=== PATIENT | female | born 1970 | race Caucasian/White ===

== ENCOUNTER → 2016-10-20 | Outpatient (CLI) | payer BC ==
--- NOTE | 2016-10-24 08:51 | MM ---
Reason for exam: screening (asymptomatic). Last mammogram was performed 3 years and 6 months ago. History: Took hormonal contraceptives for 4 years. Physical Findings: A clinical breast exam by your physician is recommended on an annual basis and results should be correlated with mammographic findings. MG Screening Mammo w CAD Bilateral CC and MLO view(s) were taken. Prior study comparison: April 17, 2013, bilateral digital screening mammo w/CAD. There are scattered fibroglandular densities. No significant changes when compared with prior studies. ASSESSMENT: Negative, BI-RAD 1 RECOMMENDATION: Routine screening mammogram of both breasts in 1 year.
== END | disposition home or self-care (01) ==
LOC: RADMAMWWP 11:28
PROVIDERS: ATTEND Family Medicine
DX: Z12.31 Encounter for screening mammogram for malignant neoplasm of breast (principal)

== ENCOUNTER 2017-07-03 06:58 | Emergency (ER) | payer BC ==
--- NOTE | 2017-07-03 07:55 | ED ---
ENT HPI - General Chief complaint: ENT Stated complaint: poss sinus infection Time Seen by Provider: 07/03/17 07:30 Source: patient, RN notes reviewed Mode of arrival: ambulatory Limitations: no limitations - History of Present Illness Initial comments: This is a 38-year-old female who states she had the onset 2 or 3 days ago of sinus congestion and developing left ear pain. She also has a slight cough is nonproductive she has been around grandchildren who have been ill. She's not sure whether they have influenza or not. She states her sinuses are stuffy she has felt feverish but has not registered a temperature. No overt chills or sweats. She has had some rhinorrhea that developed this morning. Complains of some facial pain especially left ear pain. MD complaint: ear pain, other - Related Data Previous Rx's Medication Instructions Recorded Clindamycin [Cleocin] 300 mg PO Q6H #40 capsule 07/03/17 Ibuprofen 800 mg PO Q6HR PRN #20 tablet 07/03/17 Allergies Allergy/AdvReac Type Severity Reaction Status Date / Time Penicillins Allergy Rash/Hives Verified 07/03/17 07:33 sulfamethoxazole Allergy Anaphylaxis Verified 07/03/17 07:33 [From Bactrim] trimethoprim [From Bactrim] Allergy Anaphylaxis Verified 07/03/17 07:33 Review of Systems ROS Statement: Those systems with pertinent positive or pertinent negative responses have been documented in the HPI. ROS Other: All systems not noted in ROS Statement are negative. Past Medical History Past Medical History: No Reported History History of Any Multi-Drug Resistant Organisms: None Reported Additional Past Surgical History / Comment(s): fatty tumor removed, ovarian cyst removal Past Psychological History: Depression Smoking Status: Former smoker Past Alcohol Use History: Rare Past Drug Use History: None Reported General Exam - General Exam Comments Initial Comments: This is a well-developed well-nourished awake alert oriented 3 female Limitations: no limitations General appearance: alert, in no apparent distress Head exam: Present: atraumatic, normocephalic, normal inspection Eye exam: Present: normal appearance, PERRL, EOMI. Absent: scleral icterus, conjunctival injection, periorbital swelling ENT exam: Present: normal oropharynx, TM's normal bilaterally, other ( Examination the external auditory canal on the left reveals erythema with the external ear and localized lymph nodes with erythema and tenderness palpation is also tenderness palpation and percussion over the frontal andHer sinuses. Boggy nasal mucosa is noted) Neck exam: Present: normal inspection, full ROM, lymphadenopathy. Absent: tenderness, meningismus Respiratory exam: Present: normal lung sounds bilaterally. Absent: respiratory distress, wheezes, rales, rhonchi, stridor Cardiovascular Exam: Present: regular rate, normal rhythm, normal heart sounds. Absent: systolic murmur, diastolic murmur, rubs, gallop, clicks GI/Abdominal exam: Present: soft, normal bowel sounds. Absent: distended, tenderness, guarding, rebound, rigid Extremities exam: Present: normal inspection, full ROM, normal capillary refill. Absent: tenderness, pedal edema, joint swelling, calf tenderness Back exam: Present: normal inspection Neurological exam: Present: alert, oriented X3, CN II-XII intact Psychiatric exam: Present: normal affect, normal mood Skin exam: Present: warm, dry, intact, normal color. Absent: rash Course Vital Signs 07/03/17 07:13 Temperature 97 F L Pulse Rate 78 Respiratory 16 Rate Blood Pressure 154/91 O2 Sat by Pulse 97 Oximetry Medical Decision Making - Medical Decision Making The patient's influenza was negative. I did discuss the findings with her. She does have an appointment to see her publicity writer tomorrow for evaluation of her psoriasis. Tension will be placed on antibiotics for sinusitis and a suspected otitis externa. - Lab Data Lab Results 07/03/17 Range/Units 08:14 Influenza Type A RNA Not Detected (Not Detectd) Influenza Type B (PCR) Not Detected (Not Detectd) Disposition Clinical Impression: Sinusitis, Otitis externa of left ear Disposition: HOME SELF-CARE Condition: Good Instructions: Sinusitis (ED), Otitis Externa (ED) Prescriptions: Clindamycin [Cleocin] 300 mg PO Q6H #40 capsule Ibuprofen 800 mg PO Q6HR PRN #20 tablet PRN Reason: Pain Referrals: Pravin Swain DO [Primary Care Provider] - 1-2 days
[2017-07-03] MEDS ORDERED: CLINDAMYCIN 150 MG CAP PO STA (08:37)
[2017-07-03 09:18] VITALS: BP 131/71; PULSE 72; RESP 18; TEMP 98.3
== END 2017-07-03 09:18 | disposition home or self-care (01) ==
LOC: EC 06:58
DX: H60.92 Unspecified otitis externa, left ear (principal); J32.9 Chronic sinusitis, unspecified; R59.0 Localized enlarged lymph nodes; Z87.891 Personal history of nicotine dependence; Z88.0 Allergy status to penicillin; Z88.1 Allergy status to other antibiotic agents
CPT/HCPCS: 87502; 99283

== ENCOUNTER → 2018-01-01 | Outpatient (CLI) | payer BC ==
--- NOTE | 2018-01-02 08:47 | MM ---
Reason for exam: screening (asymptomatic). Last mammogram was performed 1 year and 2 months ago. History: Took hormonal contraceptives for 4 years. Physical Findings: A clinical breast exam by your physician is recommended on an annual basis and results should be correlated with mammographic findings. MG Screening Mammo w CAD Bilateral CC and MLO view(s) were taken. Prior study comparison: October 20, 2016, bilateral MG screening mammo w CAD. April 17, 2013, bilateral digital screening mammo w/CAD. The breast tissue is heterogeneously dense. This may lower the sensitivity of mammography. No significant changes when compared with prior studies. ASSESSMENT: Benign, BI-RAD 2 RECOMMENDATION: Routine screening mammogram of both breasts in 1 year.
== END | disposition home or self-care (01) ==
LOC: RADMAMWWP 09:10
PROVIDERS: ATTEND Family Medicine
DX: Z12.31 Encounter for screening mammogram for malignant neoplasm of breast (principal)
CPT/HCPCS: 77067

== ENCOUNTER → 2019-08-02 | Outpatient (CLI) | payer SELFPAY ==
--- NOTE | 2019-08-05 11:37 | MM ---
Reason for exam: screening (asymptomatic). Last mammogram was performed 1 year and 7 months ago. History: Took hormonal contraceptives for 4 years. Physical Findings: A clinical breast exam by your physician is recommended on an annual basis and results should be correlated with mammographic findings. MG Screening Mammo w CAD Bilateral CC and MLO view(s) were taken. Prior study comparison: January 01, 2018, bilateral MG screening mammo w CAD. October 20, 2016, bilateral MG screening mammo w CAD. There are scattered fibroglandular densities. There are similar appearing right calcifications. No suspicious abnormality. No significant changes when compared with prior studies. ASSESSMENT: Benign, BI-RAD 2 RECOMMENDATION: Routine screening mammogram of both breasts in 1 year.
== END | disposition home or self-care (01) ==
LOC: RADMAMWWP 09:00
PROVIDERS: ATTEND Physician Assistant Medical
DX: Z12.31 Encounter for screening mammogram for malignant neoplasm of breast (principal)
CPT/HCPCS: 77067

== ENCOUNTER → 2023-05-17 | Outpatient (CLI) | payer BC ==
--- NOTE | 2023-05-17 16:13 | XR ---
EXAMINATION TYPE: XR finger RT DATE OF EXAM: 05/17/2023 COMPARISON: NONE HISTORY: Pain TECHNIQUE: Two views are submitted. FINDINGS: The osseous structures are intact. There is narrowing of all DIP joints most marked involving the thi rd digit. Diffuse osteopenia. Moderate first carpal metacarpal joint arthropathy. A lateral views dem onstrates mild to moderate PIP joint arthropathy. There is no acute fracture or dislocation. IMPRESSION: 1. No definite acute fracture or dislocation if symptoms persist, follow-up study in 7 to 10 days wo uld be suggested. 2. Diffuse osteopenia. Deformity at the base of the middle phalanx at the level of the PIP joint is m ost likely chronic but should be correlated with point tenderness. Most likely post arthropathy rathe r than posttraumatic. If point tender consider follow-up CT scan.
== END | disposition home or self-care (01) ==
LOC: RADXRYALE 15:51
PROVIDERS: ATTEND Physician Assistant Medical
DX: M85.80 Other specified disorders of bone density and structure, unspecified site (principal); M79.644 Pain in right finger(s)